=== PATIENT | female | born 1980 | race Caucasian/White ===

== ENCOUNTER 2017-03-04 01:27 | Emergency (ER) | payer SELFPAY ==
[~2017-03-04] VITALS: Ht 152.4 cm; Wt 79.4 kg
[~2017-03-04 01:27] MED LIST: CIPROFLOXACIN500 MG PO; ZOFRAN4 MG PO
[2017-03-04 02:40] LABS: BASO # 0.1 10*3/uL (0.0-0.1); BASO % 0.8 % (0.0-1.0); EOS # 0.1 10*3/uL (0.0-0.4); EOS % 1.3 % (1.0-4.0); HEMOGLOBIN 12.6 g/dl (12.0-16.0); LYMPH % 20.1 % (27.0-41.0); MEAN CELL VOLUME 92.7 fl (81.0-99.0); MEAN CORPUSCULAR HGB 30.7 pg (27.0-31.0); MEAN CORPUSCULAR HGB CONC 33.2 g/dl (33.0-37.0); MEAN PLATELET VOLUME 11.6 fl (9.6-12.3); MONO # 0.7 10*3/uL (0.1-1.0); MONO % 7.3 % (3.0-9.0); NEUT # 7.1 10*3/uL (2.3-7.9); NEUT % 70.2 % (47.0-73.0); PLATELET COUNT AUTOMATED 202 10*3/uL (130-400); RED CELL DISTRI WIDTH 14.1 % (0-14.5); WHITE BLOOD COUNT 10.1 10*3/uL (4.8-10.8)
[2017-03-04 02:55] LABS: ALBUMIN 3.5 gm/dl (3.1-4.5); ALKALINE PHOSPHATASE 65 U/L (45-117); BILIRUBIN, TOTAL 0.2 mg/dl (0.2-1.0); BUN 9 mg/dl (7-24); CARBON DIOXIDE 25 mmol/L (21-32); CHLORIDE 109 mmol/L (98-107); EST GLOM FILT AFRICAN AMERICAN > 60 ml/min; GLUCOSE 93 mg/dL (65-99); POTASSIUM 4.1 mmol/L (3.5-5.1); SGOT/AST 30 IU/L (3-35); SGPT/ALT 28 U/L (12-78); SODIUM 142 mmol/L (136-145); TOTAL PROTEIN 7.2 gm/dL (6.4-8.2)
[2017-03-04 03:25] LABS: BILIRUBIN NEGATIVE (NEGATIVE); BLOOD TRACE-LYSED (NEGATIVE); CLARITY SL CLOUDY (CLEAR); COLOR YELLOW (YELLOW); GLUCOSE NEGATIVE (NEGATIVE); KETONE TRACE (NEGATIVE); LEUKO ESTERASE NEGATIVE (NEGATIVE); NITRITE NEGATIVE (NEGATIVE); PROTEIN NEGATIVE (NEGATIVE); UROBILINOGEN 0.2 E.U./dl (0.2-1.0)
[2017-03-04 03:33] LABS: BACTERIA 1+; EPITHELIAL CELLS 15-20
[2017-03-04 03:34] LABS: RBC 0-2 rbc/hpf (0-2)
[2017-03-04 03:39] LABS: URINE AMPHETAMINES < 1000 (1000ng/ml); URINE BARBITURATES < 200 (200ng/ml); URINE COCAINE < 300 (300ng/ml)
== END 2017-03-04 04:17 | disposition home or self-care (01) ==
LOC: ED 01:27
PROVIDERS: Emergency Medicine
DX: F41.9 Anxiety disorder, unspecified (principal); F17.200 Nicotine dependence, unspecified, uncomplicated; Z88.1 Allergy status to other antibiotic agents; Z88.6 Allergy status to analgesic agent; Z88.8 Allergy status to other drugs, medicaments and biological substances; F32.9 Major depressive disorder, single episode, unspecified

== ENCOUNTER → 2022-08-01 | Day surgery (SDC) | payer OTHER ==
[~2022-08-01] VITALS: Ht 152.4 cm; Wt 79.4 kg
[~2022-08-01] MED LIST changes: +B121000 MCG/1 IM; +BUSPAR5 MG PO; +FLUMADINE100 MG PO; +FLUVOXAMINE100 MG PO; +IBU800 M1 PO; +LATU60TA PO; +METFORMIN HYDR500 MG PO; +OFLOXACIN OTIC5 ML OT; +PRENATAL FORMU1 EAC4 PO
[2022-08-01 10:00] VITALS: BP 117/67
[2022-08-01 10:24] VITALS: BP 109/61
[2022-08-01 10:40] VITALS: BP 126/72
[2022-08-01 10:53] VITALS: BP 124/76
== END | disposition home or self-care (01) ==
LOC: SDC 07-28 11:45
PROVIDERS: ATTEND Specialist
DX: H65.491 Other chronic nonsuppurative otitis media, right ear (principal); H69.81 Other specified disorders of Eustachian tube, right ear; M26.621 Arthralgia of right temporomandibular joint; H92.01 Otalgia, right ear; I10 Essential (primary) hypertension; F41.9 Anxiety disorder, unspecified; F32.A Depression, unspecified; F17.210 Nicotine dependence, cigarettes, uncomplicated; E11.9 Type 2 diabetes mellitus without complications; Z86.69 Personal history of other diseases of the nervous system and sense organs